=== PATIENT | male | born 1995 | race American Indian/Alaskan Native ===

== ENCOUNTER 2017-09-27 22:34 | Emergency (ER) | payer BC, OTHER ==
[2017-09-27] MEDS ORDERED: HYDROmorphone 1 MG/ML Syringe IVPUSH ONE ×2 (22:40→23:20)
[2017-09-27] MEDS ORDERED: Ondansetron 4 MG/2 ML SDV IVPUSH ONE (22:40)
[2017-09-27] MEDS ORDERED: Diphtheria,Pertussis(Acell),Tetanus Vaccine 0.5 ML Syringe IM ONE (22:40)
[2017-09-27] MEDS ORDERED: Sodium Chloride 0.9% 1,000 ML IV ONE (22:40)
[2017-09-27] MEDS ORDERED: HYDROmorphone 1 MG/ML Syringe ONE (22:42)
[2017-09-27] MEDS ORDERED: Ondansetron 4 MG/2 ML SDV ONE (22:42)
[2017-09-27] MEDS ORDERED: Diphtheria,Pertussis(Acell),Tetanus Vaccine 0.5 ML Syringe ONE (22:43)
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
[2017-09-27 23:11] LABS: CHLORIDE,CL 105 mmol/L (98-107); SODIUM,NA 142 mmol/L (136-148)
[2017-09-27] MEDS ORDERED: HYDROmorphone 2 MG/ML SDV ONE (23:22)
[2017-09-27] MEDS ORDERED: HYDROmorphone 2 MG/ML SDV IVPUSH ONE (23:32)
[2017-09-28] MEDS ORDERED: Lactated Ringers 1,000 ML IV SCH (00:30)
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
== END 2017-09-28 01:16 ==
LOC: MW.ED 22:34
DX: T20.00XA Burn of unspecified degree of head, face, and neck, unspecified site, initial encounter (principal); T23.002A Burn of unspecified degree of left hand, unspecified site, initial encounter; T23.001A Burn of unspecified degree of right hand, unspecified site, initial encounter; X12.XXXA Contact with other hot fluids, initial encounter; Z88.0 Allergy status to penicillin
CPT/HCPCS: 36415; 71045; 80053; 85025; 85610; 90471; 90715; 96361; 96374; 96375; 96376; 99285; J1170; J2405; J7040; J7120; 99284